=== PATIENT | female | born 1995 | race Hispanic/Latino ===

== ENCOUNTER 2020-06-29 18:06 | Emergency (ER) | payer OTHER ==
[~2020-06-29] VITALS: Ht 149.9 cm; Wt 74.4 kg
[2020-06-29] MEDS ORDERED: TRIMETHOPRIM/SULFAMETHOXAZOLE 160-800 MG TAB PO ONE (20:45)
[2020-06-29] MEDS ORDERED: BACTRIM DS TAB1 EACH PO (20:46)
[2020-06-29] MEDS ORDERED: TRIMETHOPRIM/SULFAMETHOXAZOLE 160-800 MG TAB ONE (21:07)
== END 2020-06-29 21:07 | disposition home or self-care (01) ==
LOC: FSED 18:28
DX: R30.0 Dysuria (principal); N39.0 Urinary tract infection, site not specified; R35.0 Frequency of micturition; M54.2 Cervicalgia; R05 Cough; R51.9 Headache, unspecified
CPT/HCPCS: 81025; 99283